=== PATIENT | female | born 2000 | race American Indian/Alaskan Native ===

== ENCOUNTER 2021-11-25 16:50 | Emergency (ER) | payer SELFPAY ==
[2021-11-25 19:12] VITALS: BP 115/67
[2021-11-25 19:49] LABS: Bilirubin,Urine NEG (Negative); Blood,Urine NEG (Negative); Color,Urine Yellow (Yellow); Protein,Urine <15 mg/dL mg/dL (Negative); Urobilinogen,Urine < 2.0 mg/dL (<2.0)
[2021-11-25 20:03] LABS: Bacteria,Urine 1+ /HPF (Negative); Mucus,Urine 3+ /HPF
[2021-11-25 20:08] LABS: HCG Qualitative,Urine Negative (Negative)
== END 2021-11-26 07:22 | disposition left against medical advice (07) ==
LOC: ED 16:50
DX: R10.9 Unspecified abdominal pain (principal); Z53.21 Procedure and treatment not carried out due to patient leaving prior to being seen by health care provider
CPT/HCPCS: 81001; 81025